=== PATIENT | male | born 1965 | race Caucasian/White ===

== ENCOUNTER 2018-07-18 09:15 | Inpatient (IN) | payer OTHER ==
[2018-07-18] MEDS: LACTATED RINGER'S 1,000 ML IV (10:48)
[2018-07-18] MEDS ORDERED: GELATIN SIZE 100 SPONGE (12:26)
[2018-07-18] MEDS ORDERED: THROMBIN 5000 UNIT VIAL (12:26)
[2018-07-18] MEDS ORDERED: ONDANSETRON 4 MG INJ IV ×2 (12:30→16:00)
[2018-07-18] MEDS ORDERED: DIPHENHYDRAMINE 50 MG INJ IV ×2 (12:30→16:00)
[2018-07-18] MEDS ORDERED: BISACODYL 10 MG SUPP PR (12:30)
[2018-07-18] MEDS ORDERED: NALOXONE (0.4 MG/ML) INJ IV (12:30)
[2018-07-18] MEDS ORDERED: CEPASTAT LOZENGE MT (12:30)
[2018-07-18] MEDS ORDERED: HYDROmorphONE 0.5 MG/0.5 ML SYG IV (12:30)
[2018-07-18] MEDS ORDERED: HYDROCODONE/APAP (10/325) TAB PO (12:30)
[2018-07-18] MEDS ORDERED: ACETAMINOPHEN 325 MG TAB PO (12:30)
[2018-07-18] MEDS ORDERED: CYCLOBENZAPRINE 10 MG TAB PO (12:30)
[2018-07-18] MEDS ORDERED: AL HYDROX/MG HYDROX/SIMETH 30 ML CUP PO (12:30)
[2018-07-18] MEDS ORDERED: DIPHENHYDRAMINE 25 MG CAP PO (12:30)
[2018-07-18] MEDS ORDERED: PROPOFOL 200 MG INJ (12:45)
[2018-07-18] MEDS ORDERED: SUCCINYLCHOLINE CHLORIDE 100 MG/5 ML SYG IV (12:45)
[2018-07-18] MEDS ORDERED: LIDOCAINE 2% (SDV) 5 ML INJ (12:45)
[2018-07-18] MEDS ORDERED: ROCURONIUM 50 MG INJ (12:45)
[2018-07-18] MEDS ORDERED: DESFLURANE 15 MIN (12:45)
[2018-07-18] MEDS ORDERED: FAMOTIDINE 20 MG INJ (13:02)
[2018-07-18] MEDS ORDERED: ONDANSETRON 4 MG INJ (13:02)
[2018-07-18] MEDS ORDERED: DEXAMETHASONE 4 MG/ML 5 ML INJ (13:02)
[2018-07-18] MEDS ORDERED: CEFAZOLIN 1 GM INJ (13:02)
[2018-07-18] MEDS ORDERED: MIDAZOLAM 1 MG/ML 2 ML INJ (13:16)
[2018-07-18] MEDS: POLYMYXIN/BACITRACIN 1L IRRIG (13:55)
[2018-07-18] MEDS: BUPIVACAINE 0.5%/EPI (SDV) 30 ML INJ (13:55)
[2018-07-18] MEDS: CA CHLORIDE 10% 10 ML SYRINGE (13:56)
[2018-07-18] MEDS: HEPARIN 1000 UNITS/ML 10 ML INJ (13:56)
[2018-07-18] MEDS: THROMBIN 5000 UNIT VIAL (13:56)
[2018-07-18] MEDS: CEFAZOLIN 1 GM/50 ML (PMX) 50 ML IVPB ×2 (15:00→22:53)
[2018-07-18] MEDS ORDERED: ALBUTEROL 0.083% (NEB) 2.5 MG/3 ML AMP HHN (16:00)
[2018-07-18] MEDS ORDERED: ALBUMIN HUMAN 5% 250 ML IV (16:00)
[2018-07-18] MEDS ORDERED: FENTAnyl 50 MCG/ML VIAL IV ×3 (16:00)
[2018-07-18] MEDS ORDERED: HYDROmorphONE 1 MG/5 ML IV SYRINGE IV ×3 (16:00)
[2018-07-18] MEDS ORDERED: LEVALBUTEROL (NEB) 0.63 MG/3 ML AMP HHN (16:00)
[2018-07-18] MEDS ORDERED: METOCLOPRAMIDE 10 MG INJ IV (16:00)
[2018-07-18] MEDS ORDERED: EPHEDrine 25 MG/5 ML SYG IV (16:00)
[2018-07-18] MEDS ORDERED: LEVALBUTEROL (NEB) 1.25 MG/0.5 ML AMP HHN (16:00)
[2018-07-18] MEDS ORDERED: IPRATROPIUM (NEB) 0.5 MG/2.5 ML AMP HHN (16:00)
[2018-07-18] MEDS ORDERED: LABETALOL HCL 20MG INJ IV (16:00)
[2018-07-18] MEDS ORDERED: MEPERIDINE 25 MG INJ IV (16:00)
[2018-07-18] MEDS ORDERED: hydrALAzine 20 MG INJ IV (16:00)
[2018-07-18] MEDS: D5W-0.45 NACL + KCL 20 MEQ 1,000 ML IV (16:52)
[2018-07-18] MEDS: DOCUSATE SODIUM 100 MG CAP PO (20:29)
[2018-07-19] MEDS: D5W-0.45 NACL + KCL 20 MEQ 1,000 ML IV ×2 (00:30→02:44)
[2018-07-19] MEDS: HYDROCODONE/APAP (10/325) TAB PO (02:44)
[2018-07-19 05:23] LABS: ADD MAN DIFF? NO
[2018-07-19 05:35] LABS: ABNORMAL IP MESSAGE 1; BASOPHILS % 0.1 % (0.0-2.0); HEMATOCRIT 40.5 % (42.0-52.0); HEMOGLOBIN 13.6 g/dl (14.0-18.0); LYMPHOCYTES # 0.3 10^3/ul (0.8-2.9); LYMPHOCYTES % 3.9 % (15.0-51.0); MEAN CORPUSCULAR HEMOGLOBIN 26.6 pg (29.0-33.0); MEAN CORPUSCULAR HGB CONC 33.6 g/dl (32.0-37.0); MEAN CORPUSCULAR VOLUME 79.3 fl (82.0-101.0); MEAN PLATELET VOLUME 10.1 fl (7.4-10.4); MONOCYTE # 0.4 10^3/ul (0.3-0.9); MONOCYTES % 4.4 % (0.0-11.0); NEUTROPHIL # 7.6 10^3/ul (1.6-7.5); NEUTROPHILS % 91.4 % (39.0-77.0); PLATELET COUNT 217 10^3/UL (140-415); POSITIVE DIFF @See below; RED BLOOD COUNT 5.11 10^6/ul (4.70-6.10); RED CELL DISTRIBUTION WIDTH 13.2 % (11.5-14.5)
[2018-07-19 05:35] LABS: WHITE BLOOD COUNT 8.3 10^3/ul (4.8-10.8)
[2018-07-19 05:55] LABS: ANION GAP 10 (5-13); BLOOD UREA NITROGEN 20 mg/dl (7-20); CALCIUM 8.8 mg/dl (8.4-10.2); CARBON DIOXIDE 24 mmol/L (21-31); CHLORIDE 105 mmol/L (97-110); Estimated GFR > 60 mL/min (>60); GLUCOSE 142 mg/dl (70-220); POTASSIUM 4.4 mmol/L (3.5-5.1); SODIUM 139 mmol/L (135-144)
[2018-07-19] MEDS: CEFAZOLIN 1 GM/50 ML (PMX) 50 ML IVPB (06:33)
[2018-07-19] MEDS: DOCUSATE SODIUM 100 MG CAP PO (09:05)
[2018-07-19] MEDS: HYDROCODONE/APAP (5/325) TAB PO ×2 (09:05→14:58)
== END 2018-07-19 16:48 | disposition home or self-care (01) | DRG 517 ==
LOC: REC 09:15 → MS1 16:35
PROC: 01NB0ZZ Release Lumbar Nerve, Open Approach (ICD-10-PCS; principal; 2018-07-18 11:30)
DX: M48.061 Spinal stenosis, lumbar region without neurogenic claudication (principal); M54.16 Radiculopathy, lumbar region; G47.33 Obstructive sleep apnea (adult) (pediatric)
CPT/HCPCS: 72020; 80048; 83735; 85025; 86999; 97116; 97162; 97530